=== PATIENT | male | born 1990 | race Caucasian/White ===

== ENCOUNTER 2022-11-15 16:21 | Emergency (ER) | payer OTHER, SELFPAY ==
--- NOTE | 2022-11-15 16:25 | ED.UPPEXIN ---
HPI - Extremity Injury (Upper) General Chief Complaint: Extremity Injury, Upper Stated Complaint: Right Shoulder Injury Time Seen by Provider: 11/15/22 16:25 Source: patient and RN notes reviewed History of Present Illness HPI narrative: Patient is a 32-year-old male clear urgent care with complaints of right shoulder pain. Patient states that he was at work yesterday and throwing trash into the dumpster and pulled something in the back of his right shoulder. 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 Patient has not done anything [id number] for his pain. No other acute complaints. No acute distress noted. Patient aware of the plan of care. Some parts of this dictation were generated by voice recognition software and may contain typographical and/or grammatical inaccuracies. Related Data Allergies Allergy/AdvReac Type Severity Reaction Status Date / Time No Known Allergies Allergy Unverified 10/31/16 11:03 Review of Systems Review of Systems: CONSTITUTIONAL: Denies fever, chills, or sweats. EYES: Denies visual changes, redness, or discharge. ENT: Denies rhinorrhea, congestion, sore throat, or otalgia. CARDIOVASCULAR: Denies chest pain, palpitations, or edema. RESPIRATORY: Denies cough or dyspnea. GASTROINTESTINAL: Denies abdominal pain, nausea, vomiting, or diarrhea. GENITOURINARY: Denies dysuria or hematuria. SKIN: Denies rash or itching. MUSCULOSKELETAL: Reports of right shoulder pain NEUROLOGIC: Denies headache, numbness, or weakness. All other systems reviewed are negative, except as documented in HPI. PMFSH Comments At the time of my signature, I reviewed and agree with the nursing past medical, surgical, social, and family history. There is no relevant family history pertinent to the patient complaint. Exam Narrative: GENERAL: This is a well-nourished, well-developed patient, in no apparent distress. HEAD: normocephalic, atraumatic. EYES: PERRL. Sclera clear/white. Vision is grossly intact. EARS: External ears normal NOSE: External nose normal with no obvious nasal discharge, nares without redness, no rhinorrhea. THROAT: Mucous membranes moist NECK: Neck supple SKIN: warm, intact with no suspicious lesions or rash, good texture and turgor. NEURO: awake, alert, and oriented to person, place and time. There were no obvious focal neurologic abnormalities. EXTREMITIES: Range of motion right upper extremity limited due to pain. Mild posterior right shoulder tenderness on palpation. No obvious dislocation or injury to the right upper extremity. Positive strong right radial pulse with capillary refill less than 2 seconds Course Course Level of Care: Express Care Visit Vital Signs Vital signs: Vital Signs Temperature 97.8 F 11/15/22 16:34 Pulse Rate 74 11/15/22 16:34 Respiratory Rate 14 11/15/22 16:34 Blood Pressure 128/85 11/15/22 16:34 Pulse Oximetry 100 11/15/22 16:34 Oxygen Delivery Room Air 11/15/22 16:34 Temperature 97.8 F 11/15/22 16:34 Pulse Rate 74 11/15/22 16:34 Respiratory Rate 14 11/15/22 16:34 Blood Pressure 128/85 11/15/22 16:34 Pulse Oximetry 100 11/15/22 16:34 Oxygen Delivery Room Air 11/15/22 16:34 Reviewed MDM - Extremity Injury (Upper) MDM Narrative Medical decision making narrative: Advised patient to complete the steroid regimen as prescribed. Be sure to eat and drink with the medication. Use the Flexeril as needed, for muscle relaxant. Be aware the Flexeril will make you drowsy when not advise operating heavy machinery or working while on the medication. Use the ibuprofen as needed for pain. Avoid any strenuous activity such as heavy lifting/pushing/pulling until pain has subsided. Follow-up with your PCP within 2-5 days or for worsening symptoms or failure to improve. Differential Diagnosis Differential diagnosis: Likely sprain and
[2022-11-15 16:34] VITALS: BP 128/85; PULSE 74; RESP 14; TEMP 36.6; O2SAT 100
== END 2022-11-15 16:58 | disposition home or self-care (01) ==
PROVIDERS: Emergency Provider Nurse Practitioner Family
DX: S46.911A Strain of unspecified muscle, fascia and tendon at shoulder and upper arm level, right arm, initial encounter (principal); X50.0XXA Overexertion from strenuous movement or load, initial encounter; Y99.0 Civilian activity done for income or pay
CPT/HCPCS: 99203; G0463